=== PATIENT | female | born 1965 | race Caucasian/White ===

== ENCOUNTER → 2017-01-18 | Outpatient (CLI) | payer BC ==
[~2017-01-18] MED LIST: CELEBREX 200MG200 MG PO; COUMADIN 5MG5 MG/TAB PO; COUMADIN 77.5 MG/TAB PO; NORCO 325 MG-7.1 TAB PO; SYNTHROID0.075 MG/T PO; TOPROL XL 25MG25 MG PO; ULTRAM 50MG TAB50 MG PO
== END ==
LOC: COL.LAB 11:51
DX: Z01.812 Encounter for preprocedural laboratory examination (principal); M17.12 Unilateral primary osteoarthritis, left knee

== ENCOUNTER → 2017-01-25 | Outpatient (REF) ==
[2017-01-25 07:22] LABS: PROTHROMBIN TIME 10.6 SECONDS (9.7-12.8)
== END ==
LOC: ZMSC 07:16
PROVIDERS: Orthopaedic Surgery
DX: Z01.89 Encounter for other specified special examinations (principal)

== ENCOUNTER 2017-02-03 09:05 | Inpatient (IN) | payer BC ==
[~2017-02-03] VITALS: Ht 165.1 cm; Wt 109.0 kg
[2017-02-07] MEDS ORDERED: SYNTHROID0.075 MG/T PO (14:03)
[2017-02-07] MEDS ORDERED: COUMADIN 5MG5 MG/TAB PO (14:03)
[2017-02-07] MEDS ORDERED: TOPROL XL 25MG25 MG PO (14:04)
[2017-02-07] MEDS ORDERED: ULTRAM 50MG TAB50 MG PO (14:18)
[2017-02-08] VITALS (13 sets, daily range): BP systolic 106–139; BP diastolic 38–85; PULSE 64–104; TEMP 97.7–98.7
[2017-02-08] MEDS ORDERED: COUMADIN 77.5 MG/TAB PO (05:43)
[2017-02-08 05:55] LABS: INR 1.1 (0.8-3.0); PROTHROMBIN TIME 12.1 SECONDS (9.7-12.8)
[2017-02-09] VITALS (7 sets, daily range): BP systolic 98–123; BP diastolic 43–79; PULSE 50–93; TEMP 96.8–98
[2017-02-09 07:02] LABS: HEMATOCRIT 36.5 % (37.0-47.0); HEMOGLOBIN 11.6 g/dl (12.5-16.0)
[2017-02-09] MEDS ORDERED: CELEBREX 200MG200 MG PO (07:11)
[2017-02-09] MEDS ORDERED: NORCO 325 MG-7.1 TAB PO (07:12)
[2017-02-09 07:25] LABS: INR 1.2 (0.8-3.0); PROTHROMBIN TIME 13.1 SECONDS (9.7-12.8)
[2017-02-10 04:28] VITALS: BP 109/62; PULSE 73; TEMP 98.4
[2017-02-10 07:48] LABS: HEMATOCRIT 33.8 % (37.0-47.0); HEMOGLOBIN 10.5 g/dl (12.5-16.0)
[2017-02-10 08:00] VITALS: BP 123/58; PULSE 80; TEMP 97.7
[2017-02-10 12:39] VITALS: BP 133/80; PULSE 106; TEMP 98.5
== END 2017-02-10 14:28 | disposition home or self-care (01) | DRG 470 ==
LOC: JCC 02-08 05:03
PROVIDERS: Nurse Anesthetist, Certified Registered; Orthopaedic Surgery; Physician Assistant
PROC: 0SRB0JA Replacement of Left Hip Joint with Synthetic Substitute, Uncemented, Open Approach (ICD-10-PCS; principal; 2017-02-08 07:30)
DX: M16.12 Unilateral primary osteoarthritis, left hip (principal); I48.91 Unspecified atrial fibrillation; Z87.891 Personal history of nicotine dependence; Z79.01 Long term (current) use of anticoagulants
CPT/HCPCS: A4315; A9284; C1713; C1776; J0690; J1100; J1885; J2250; J2370; J2405; J2704; J3010; J7050; J7120